=== PATIENT | female | born 1995 | race Caucasian/White ===

== ENCOUNTER 2021-08-11 16:02 | Emergency (ER) | payer OTHER, MEDICAID, SELFPAY ==
[2021-08-11 16:15] VITALS: BP 142/88; PULSE 67; RESP 16; TEMP 36.7; O2SAT 100
--- NOTE | 2021-08-11 17:07 | ED.RECABL ---
HPI - Recheck/Abnormal Lab/Rx <Jae Leary PA-C - Last Filed: 08/11/21 19:26> General Chief Complaint: Recheck/Abnormal Lab/Rx Stated Complaint: sent by [facility] , unable to open jaw Time Seen by Provider: 08/11/21 16:37 Source: patient Mode of arrival: Ambulatory History of Present Illness HPI narrative: Patient is a 25-year-old female presenting to the emergency department today for an evaluation jaw pain. Patient states that she awoke this morning with pain on the right side of her jaw and difficulty opening her mouth. She states that she has experienced similar episodes in the past that have resolved on their own, but she notes that today's episode has lasted longer than previous episodes. She reports associated bilateral ear pain that she has experienced for ?a few years?. She denies fever, chills, chest pain, cough, shortness of breath, nausea, vomiting, diarrhea, abdominal pain, dysuria, hematuria, or any other concerning symptoms. Patient states that prior episodes of jaw pain have resolved on their own. No other concerns were voiced at this time. Related Data Home Medications Medication Instructions Recorded Confirmed No Known Home Medications 08/17/18 08/17/18 Allergies Allergy/AdvReac Type Severity Reaction Status Date / Time No Known Drug Allergies Allergy Verified 08/17/18 15:21 Review of Systems <Jae Leary PA-C - Last Filed: 08/11/21 19:26> Constitutional Constitutional: Denies chills, Denies fatigue, Denies fever(s), Denies frequent falls, Denies lethargy and Denies weakness Eyes Eyes: Denies loss of vision ENT Ears, Nose, Mouth, and Throat: Denies change in voice, Denies dizziness, Denies neck pain, Denies sore throat, Denies throat swelling and Reports other (Right jaw pain, difficulty opening mouth) Cardiovascular Cardiovascular: Denies chest pain, Denies irregular heart rhythm, Denies lightheadedness, Denies palpitations, Denies dyspnea, Denies dyspnea on exertion and Denies orthopnea Respiratory Respiratory: Denies cough, Denies dyspnea, Denies dyspnea on exertion and Denies wheezing Gastrointestinal Gastrointestinal: Denies abdominal pain, Denies change in bowel habits, Denies diarrhea, Denies nausea and Denies vomiting Genitourinary Genitourinary: Denies hematuria, Denies flank pain, Denies urinary incontinence and Denies urinary urgency Musculoskeletal Musculoskeletal: Denies back pain, Denies muscle weakness, Denies neck pain, Denies numbness and Denies tingling Integumentary/Breasts Skin/Breast: Denies pruritus, Denies erythema, Denies rash and Denies wounds Neurologic Neurologic: Denies behavioral changes, Denies confusion, Denies dizziness, Denies frequent falls, Denies loss of vision, Denies numbness, Denies tingling and Denies weakness Psychiatric Psychiatric: Denies behavioral changes and Denies confusion Endocrine Endocrine: Denies fatigue and Denies palpitations Allergic/Immunologic Allergic/Immunologic: Denies throat swelling and Denies wheezing Patient History <Jae Leary PA-C - Last Filed: 08/11/21 19:26> Social History Smoking Status: Never smoker Smoking Status: Never smoker Exam <Jae Leary PA-C - Last Filed: 08/11/21 19:26> Narrative Exam Narrative: GENERAL: 25 year old patient appears stated age. Well-developed patient, in mild distress. HEAD: Atraumatic. Normocephalic. EYES: Pupils equal round and reactive. Extraocular motions intact. No scleral icterus. No injection or drainage. ENT: Nose without bleeding, purulent drainage. Limited ability to open the mouth. Tenderness to palpation appreciated along the right side of the jaw without appreciable swelling, warmth, or crepitus. NECK: Trachea midline. Non tender CARDIOVASCULAR: Regular rate and rhythm without murmurs, gallops, or rubs. RESPIRATORY: Clear to auscultation. Breath sounds equal bilaterally. No wheezes, rales, or rhonchi. GASTROINTESTINAL: Abdomen soft, non-tender, nondistended. EXTREMITIES: No edema or joint tenderness. BACK: Nontender without deformity or crepitance. No flank tenderness. NEURO: AOx3. SKIN: No rash or erythema of visible areas Initial Vital Signs Initial Vital Signs: Vital Signs Temperature 98.0 F 08/11/21 16:15 Pulse Rate 67 08/11/21 16:15 Respiratory Rate 16 08/11/21 16:15 Blood Pressure 142/88 H 08/11/21 16:15 Pulse Oximetry 100 08/11/21 16:15 <Monalisa Kong MD - Last Filed: 08/18/21 07:35> Initial Vital Signs Initial Vital Signs: Vital Signs Temperature 98.0 F 08/11/21 16:15 Pulse Rate 67 08/11/21 16:15 Respiratory Rate 16 08/11/21 16:15 Blood Pressure 142/88 H 08/11/21 16:15 Pulse Oximetry 100 08/11/21 16:15 Course <Jae Leary PA-C - Last Filed: 08/11/21 19:26> Course Course Narrative: 50 mg of IM Toradol, 5 mg of PO cyclobenzaprine administered. Demonstrated dry exercises to patient to help alleviate pain. Orders Ordered: Discontinued Medications Cyclobenzaprine HCl (Cyclobenzaprine 10 Mg Tablet) 5 mg PO NOW ONE Stop: 08/11/21 17:08 Last Admin: 08/11/21 17:13 Dose: 5 mg Documented by: VELMA Cyclobenzaprine HCl (Cyclobenzaprine 10 Mg Tablet) 5 mg PO NOW ONE Stop: 08/11/21 17:59 Last Admin: 08/11/21 18:15 Dose: 5 mg Documented by: HUMERA Ketorolac Tromethamine (Ketorolac 30 Mg/Ml Vial) 15 mg IM NOW ONE Stop: 08/11/21 17:08 Last Admin: 08/11/21 17:14 Dose: 15 mg Documented by: VELMA Vital Signs Vital signs: Vital Signs - 8 hr 08/11/21 16:15 Temperature 98.0 F Pulse Rate 67 Respiratory Rate 16 Blood Pressure 142/88 H Pulse Oximetry 100 <Monalisa Kong MD - Last Filed: 08/18/21 07:35> Orders Ordered: Discontinued Medications Cyclobenzaprine HCl (Cyclobenzaprine 10 Mg Tablet) 5 mg PO NOW ONE Stop: 08/11/21 17:08 Last Admin: 08/11/21 17:13 Dose: 5 mg Documented by: VELMA Cyclobenzaprine HCl (Cyclobenzaprine 10 Mg Tablet) 5 mg PO NOW ONE Stop: 08/11/21 17:59 Last Admin: 08/11/21 18:15 Dose: 5 mg Documented by: HUMERA Ketorolac Tromethamine (Ketorolac 30 Mg/Ml Vial) 15 mg IM NOW ONE Stop: 08/11/21 17:08 Last Admin: 08/11/21 17:14 Dose: 15 mg Documented by: VELMA Vital Signs Vital signs: Vital Signs - 8 hr 08/11/21 16:15 Temperature 98.0 F Pulse Rate 67 Respiratory Rate 16 Blood Pressure 142/88 H Pulse Oximetry 100 MDM - Recheck/Abnormal Lab/Rx <Jae Leary PA-C - Last Filed: 08/11/21 19:26> [facility] Narrative Medical decision making narrative: To consider temporomandibular joint syndrome versus otitis externa versus otitis media versus strep pharyngitis versus viral pharyngitis versus dental caries versus dental abscess. Overall physical examination and history reassuring. Demonstrated jaw exercises at patient can do to help alleviate pain. Additionally, recommended the patient treat her pain with [id number] pain medications and icing of the painful area as needed. Patient agrees to plan and at this time feels comfortable being discharged home. Strict return precautions were discussed with the patient prior to discharge. Discharge Plan Departure Patient Disposition: Home Clinical Impression: Jaw pain Instructions: DI for Temporomandibular Disorder Activity Restrictions/Additional Instructions: *You have been diagnosed with jaw pain *What to do: *Please continue to take your regular medications as directed. [ ] New medication prescriptions sent to your pharmacy: [ ] [ ] New medication written as a paper prescription [X] No new medications given *Please follow up with your primary care provider in 2-3 days, call for an appointment. Let them know you were seen in the Emergency Department and that we ask that you be seen in follow up. We will electronically transmit a record of today's note if your PCP is in our system *If you do not have a primary care provider please contact the [facility] Resource line at [phone]. They will ask some questions about your medical history and help get you set up with a doctor in the community. *Return to Emergency Department if you should have any new, worsening or concerning symptoms, such as fever greater than 101 F, shaking chills, worsening pain, persistent vomiting or other bothersome symptoms. Prescriptions: No Action No Known Home Medications 0RF <Monalisa Kong MD - Last Filed: 08/18/21 07:35> Cosign ED Attending Candelariaature Attestation: I was immediately available in the department for consultation throughout this patient's visit. I agree with documentation as above. Monalisa Kong MD
[2021-08-11] MEDS: CYCLOBENZAPRINE 10 MG TABLET 5 MG PO ×2 (17:13→18:15)
[2021-08-11] MEDS: KETOROLAC 30 MG/ML VIAL 15 MG IM (17:14)
== END 2021-08-11 18:52 | disposition home or self-care (01) ==
PROVIDERS: Emergency Provider Physician Assistant
DX: R68.84 Jaw pain (principal)
CPT/HCPCS: 96372; 99283; J1885

== ENCOUNTER 2023-01-14 11:43 | Emergency (ER) | payer OTHER, MEDICAID, SELFPAY ==
[2023-01-14 11:51] VITALS: BP 120/80; PULSE 96; RESP 22; TEMP 37.2; O2SAT 97; BMI 25.9
[2023-01-14 12:25] LABS: Strep Grp A by PCR Rapid Negative (Negative)
[2023-01-14 12:53] LABS: Influenza A - CEPHEID Flu A NEGATIVE (NEGATIVE); Influenza B - CEPHEID Flu B NEGATIVE (NEGATIVE); Respiratory Syncytial Virus Negative (Negative)
--- NOTE | 2023-01-14 12:56 | ED_ITS ---
HPI - URI/Sore Throat <DONNY Barros - Last Filed: 01/14/23 13:39> General Chief Complaint: Upper Respiratory Symptoms Stated Complaint: sore throat/pain/nausea/feels cold Time Seen by Provider: 01/14/23 12:52 Source: patient Mode of arrival: Ambulatory History of Present Illness HPI Narrative: This is a 27-year-old female presents emergency department complaining of 2 days throat pain, lesions bathroom throat, swollen tonsils, fatigue, chills, feeling worsen having painful swallowing. She denies any shortness of breath, wheezing, cough, rhinorrhea, congestion, nausea vomiting. States that she does have chills, has not had a measured fever. Denies any allergies to medications. Related Data Previous Rx's Medication Instructions Recorded benzocaine 15 mg-menthol 3.6 mg 1 carlene mucous membrane Q2-4H PRN 01/14/23 lozenges (Cepacol Sore Throat sore throat #16 ea (benzocaine-menthol)) omeprazole 20 mg capsule,delayed 20 mg PO DAILY 2 weeks #14 caps 01/14/23 release Allergies Allergy/AdvReac Type Severity Reaction Status Date / Time No Known Drug Allergies Allergy Verified 08/17/18 15:21 Review of Systems <DONNY Barros - Last Filed: 01/14/23 13:39> Review of Systems ROS Unobtainable: All systems reviewed & are unremarkable except as noted in HPI and below Patient History <DONNY Barros - Last Filed: 01/14/23 13:39> Social History Smoking Status: Never smoker Smoking Status: Never smoker alcohol intake frequency: holidays/special occasions only Substance Use Type: does not use Exam <DONNY Barros - Last Filed: 01/14/23 13:39> Narrative Exam Narrative: Reviewed vitals signs and nursing notes. General: Pleasant, sitting upright, in no acute distress, well groomed, afebrile HEENT: symmetrical facial expressions, moist mucous membranes, neck is supple, mild anterior cervical lymphadenopathy, full range of motion nuchal rigidity, posterior pharynx is erythematous, bilateral tonsils with exudate Skin: brisk capillary refill, without rash or wound Neuro: clear speech and normal cognition, A&O x3, GCS 15, no focal motor or sensation deficits Initial Vital Signs Initial Vital Signs: Vital Signs Temperature 98.9 F 01/14/23 11:51 Pulse Rate 96 H 01/14/23 11:51 Respiratory Rate 22 01/14/23 11:51 Blood Pressure 120/80 01/14/23 11:51 Pulse Oximetry 97 01/14/23 11:51 Oxygen Delivery Method Room Air 01/14/23 11:51 <Alfonso Araujo DO - Last Filed: 01/15/23 07:18> Initial Vital Signs Initial Vital Signs: Vital Signs Temperature 98.9 F 01/14/23 11:51 Pulse Rate 96 H 01/14/23 11:51 Respiratory Rate 22 01/14/23 11:51 Blood Pressure 120/80 01/14/23 11:51 Pulse Oximetry 97 01/14/23 11:51 Oxygen Delivery Method Room Air 01/14/23 11:51 Course <DONNY Barros - Last Filed: 01/14/23 13:39> Orders Ordered: Discontinued Medications Dexamethasone (Dexamethasone 1 Mg Tablet) 10 mg 0.15 mg/kg (10 mg) PO NOW ONE Stop: 01/14/23 12:56 Last Admin: 01/14/23 13:07 Dose: Not Given Documented By: LIZZ Dexamethasone (Dexamethasone 10 Mg/Ml Vial) 10 mg PO NOW ONE Stop: 01/14/23 13:02 Last Admin: 01/14/23 13:05 Dose: 10 mg Documented By: LIZZ Ketorolac Tromethamine (Ketorolac 30 Mg/Ml Vial) 30 mg IM NOW ONE Stop: 01/14/23 12:56 Last Admin: 01/14/23 13:04 Dose: 30 mg Documented By: LIZZ Pantoprazole Sodium (Pantoprazole Dr 20 Mg Tablet) 20 mg PO NOW ONE Stop: 01/14/23 12:56 Last Admin: 01/14/23 13:05 Dose: 20 mg Documented By: LIZZ Penicillin G Benzathine (Penicillin G Benzathine 1,200,000 Unit/2 Ml Syringe) 1,200,000 unit IM NOW ONE Stop: 01/14/23 12:56 Last Admin: 01/14/23 13:06 Dose: 1,200,000 unit Documented By: KB Vital Signs Vital signs: Vital Signs - 8 hr 01/14/23 11:51 01/14/23 13:32 Temperature 98.9 F Pulse Rate 96 H 82 Respiratory Rate 22 20 Blood Pressure 120/80 109/72 Pulse Oximetry 97 100 Oxygen Delivery Method Room Air Room Air <Alfonso Araujo DO - Last Filed: 01/15/23 07:18> Orders Ordered: Discontinued Medications Dexamethasone (Dexamethasone 1 Mg Tablet) 10 mg 0.15 mg/kg (10 mg) PO NOW ONE Stop: 01/14/23 12:56 Last Admin: 01/14/23 13:07 Dose: Not Given Documented By: LIZZ Dexamethasone (Dexamethasone 10 Mg/Ml Vial) 10 mg PO NOW ONE Stop: 01/14/23 13:02 Last Admin: 01/14/23 13:05 Dose: 10 mg Documented By: LIZZ Ketorolac Tromethamine (Ketorolac 30 Mg/Ml Vial) 30 mg IM NOW ONE Stop: 01/14/23 12:56 Last Admin: 01/14/23 13:04 Dose: 30 mg Documented By: LIZZ Pantoprazole Sodium (Pantoprazole Dr 20 Mg Tablet) 20 mg PO NOW ONE Stop: 01/14/23 12:56 Last Admin: 01/14/23 13:05 Dose: 20 mg Documented By: LIZZ Penicillin G Benzathine (Penicillin G Benzathine 1,200,000 Unit/2 Ml Syringe) 1,200,000 unit IM NOW ONE Stop: 01/14/23 12:56 Last Admin: 01/14/23 13:06 Dose: 1,200,000 unit Documented By: LIZZ Vital Signs Vital signs: Vital Signs - 8 hr 01/14/23 11:51 01/14/23 13:32 Temperature 98.9 F Pulse Rate 96 H 82 Respiratory Rate 22 20 Blood Pressure 120/80 109/72 Pulse Oximetry 97 100 Oxygen Delivery Method Room Air Room Air MDM - URI/Sore Throat <DONNY Barros - Last Filed: 01/14/23 13:39> Lab Data Labs: Lab Results 01/14/23 Range/Units 12:00 SARS-CoV-2 (PCR) Negative (Negative) Influenza A (RT-PCR) Flu a negative (NEGATIVE) Influenza B (RT-PCR) Flu b negative (NEGATIVE) RSV (PCR) Negative (Negative) Group A Strep (PCR) Negative (Negative) MDM Narrative Medical decision making narrative: Chief Complaint: Sore throat, chills Primary historian: Patient Multiple etiologies for patient's complaint considered including, but not limited to: Bacterial pharyngitis, viral pharyngitis, acute viral process, 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 My interpretation of imaging: Course of care: Patient's rapid strep was negative, patient has posterior pharynx erythema, tonsillar exudate and anterior cervical nodes, no cough, shortness of breath. Will treat bacterial pharyngitis, she does not have a rash. Her symptoms were treated with Toradol, Decadron, and 1.2 million units of penicillin G IM. Patient tolerated this well, she was given Cepacol throat lozenges and omeprazole for discharge. Social considerations that may affect disposition: none Questions are addressed and there is agreement with the plan and for follow-up. I consulted with the ED attending physician Dr. Araujo as needed for higher level of care considerations and they were available for discussion and recommendations regarding plan of care and diagnostic testing. Patient is appropriate for outpatient management. #66: Appropriate Testing for Patients with Pharyngitis [x] The patient has acute pharyngitis/tonsillitis. The patient was prescribed antibiotics today and a strep test or culture was performed today or in the last 3 days. [ ] The patient has acute pharyngitis/tonsillitis and was prescribed antibiotics today. A strep test or culture was not performed because the patient meets one of the following: [ ] Patient received a competing diagnosis. The patient?s competing diagnosis is (e.g. acute otitis media, chronic sinusitis, cellulitis, etc.) [ ] Patient is currently on antibiotics or has been in the last 30 days. [ ] Patient had a competing comorbid condition within the last 12 months. The patient?s comorbid condition is [] (e.g., tuberculosis, neutropenia, cystic fibrosis, chronic bronchitis, pulmonary edema, respiratory failure, rheumatoid lung disease) <Alfonso Araujo, DO - Last Filed: 01/15/23 07:18> Lab Data Labs: Lab Results 01/14/23 Range/Units 12:00 SARS-CoV-2 (PCR) Negative (Negative) Influenza A (RT-PCR) Flu a negative (NEGATIVE) Influenza B (RT-PCR) Flu b negative (NEGATIVE) RSV (PCR) Negative (Negative) Group A Strep (PCR) Negative (Negative) Discharge Plan Departure Patient Disposition: Home Clinical Impression: Pharyngitis Qualifiers: Pharyngitis/tonsillitis etiology: streptococcus Qualified Code(s): J02.0 - Streptococcal pharyngitis Instructions: Strep Throat Activity Restrictions/Additional Instructions: *You have been diagnosed with sore throat, likely strep throat. The throat culture will grow over the next 2-3 days, you received treatment for strep throat today. If there is a different bacteria that grows off the culture, we will call you. Please use ibuprofen 600 mg every 6 hours as needed for pain, take omeprazole daily to help prevent ulcer of your stomach while taking anti- inflammatory medication after a steroid. This should help with the ulceration, you can also use Maalox and swish and swallow. I hope you feel better soon. *What to do: *Please continue to take your regular medications as directed. [x ] New medication prescriptions sent to your pharmacy: [facility]] [ ] New medication written as a paper prescription [ ] No new medications given *Please call and schedule follow up with your primary care provider in 2-3 days, at least for an update. Let them know you were seen in the Emergency Department for the above problem. We will electronically transmit a record of today's note if your PCP or specialist is in our system. *If you do not have a primary care provider please contact [phone] to establish care with one of the [facility] primary care providers. *Return to the Emergency Department for worsening symptoms, inability to keep liquids down, fever greater than 101F, chills, or other concerning symptom. Prescriptions: New omeprazole 20 mg capsule,delayed release(DR/EC) 20 mg PO DAILY 14 Days Qty: 14 0RF Cepacol Sore Throat (tavo-men) 15-3.6 mg lozenge 1 carlene mucous membrane Q2-4H PRN (Reason: sore throat) Qty: 16 0RF Stand Alone Forms: Patient Portal/API <Alfonso Araujo DO - Last Filed: 01/15/23 07:18> Cosign ED Attending Candelariaature Attestation: I was immediately available in the department for consultation. Documentation has been reviewed. I agree with assessment and plan.
[2023-01-14] MEDS: KETOROLAC 30 MG/ML VIAL IM (13:04)
[2023-01-14] MEDS: PANTOPRAZOLE DR 20 MG TABLET PO (13:05)
[2023-01-14] MEDS: DEXAMETHASONE 10 MG/ML VIAL PO (13:05)
[2023-01-14] MEDS: PENICILLIN G BENZATHINE 1,200,000 UNIT/2 ML SYRINGE 1200000 UNIT IM (13:06)
[2023-01-14 13:32] VITALS: BP 109/72; PULSE 82; RESP 20; O2SAT 100
[2023-01-14 13:38] LABS: COVID-19 CEPHEID 4-PLEX PCR Negative (Negative)
== END 2023-01-14 13:32 | disposition home or self-care (01) ==
PROVIDERS: Emergency Provider Nurse Practitioner Critical Care Medicine
DX: J02.0 Streptococcal pharyngitis (principal); Z20.822 Contact with and (suspected) exposure to COVID-19
CPT/HCPCS: 0241U; 87070; 87147; 87651; 96372; 99283; J0561; J1100; J1885

== ENCOUNTER 2023-02-02 10:06 | Emergency (ER) | payer OTHER, MEDICAID, SELFPAY ==
[2023-02-02] VITALS (19 sets, daily range): BP systolic 98–120; BP diastolic 54–71; PULSE 50–82; RESP 14–24; TEMP 36.8; O2SAT 97–99; BMI 26.5
[2023-02-02 10:29] LABS: Appearance Urine UA CLOUDY; Bilirubin Urine UA 2+ (NEGATIVE); Color Urine UA ORANGE; Glucose Urine UA NEGATIVE (Negative); Ketones Urine UA TRACE (NEGATIVE); Leukocyte Esterase Urine UA 1+ (NEGATIVE); Nitrite Urine UA POSITIVE (Negative); Occult Blood Urine UA TRACE-INTACT (Negative); Protein Urine UA NEGATIVE (Negative); Specific Gravity Urine UA >=1.030 (1.000-1.035)
--- NOTE | 2023-02-02 10:32 | DI.US.S_ITS ---
PROCEDURE: US ABDOMEN LIMITED INDICATIONS: RUQ tenderness, nausea, diarrhea TECHNIQUE: Real-time focused scanning was performed of the abdomen, with image documentation. COMPARISON: None. FINDINGS: Liver measures 16.3 cm. No visualized stones. Wall thickness measures 4 mm. It is noted patient is NPO. Common bile duct measures 5 mm. Visualized portions of the pancreas are unremarkable. No free fluid. IMPRESSION: Mildly thickened gallbladder wall suspected to be related to contraction from NPO status. No stones are identified. However, acalculous cholecystitis cannot be definitively excluded. Dictated by: Genesis Hussein M.D. on 02/02/2023 at 12:16 Approved by: Genesis Hussein M.D. on 02/02/2023 at 12:36
--- NOTE | 2023-02-02 10:33 | ED.ABDPAIN ---
HPI - Abdominal Pain <DONNY Barros - Last Filed: 02/02/23 15:13> General Chief Complaint: Abdominal Pain Stated Complaint: ABD upper pain Time Seen by Provider: 02/02/23 10:13 Source: patient Mode of arrival: Ambulatory History of Present Illness HPI narrative: This is a 27-year-old female presents to the emergency department with epigastric pain, nausea, loose stools, and states that she had a fever on 01/22/2023. She denies dysuria, urinary frequency or urgency, had pharyngitis in the end of December 2022 and was treated with antibiotics. States that she got better but then had a fever about 1 week ago with muscle aches and chills, she has not had these symptoms since. She denies taking any medications, denies lower abdominal pain, flank pain, rash headache, lightheadedness, or any upper respiratory symptoms. She denies history of abdominal surgery, states that she feels nauseated constantly. Has not had any vomiting. Denies abnormal vaginal discharge. Denies any relation of her pain to food, states there are no alleviating factors. Related Data Previous Rx's Medication Instructions Recorded benzocaine 15 mg-menthol 3.6 mg 1 carlene mucous membrane Q2-4H PRN 01/14/23 lozenges (Cepacol Sore Throat sore throat #16 ea (benzocaine-menthol)) cephalexin 500 mg capsule 500 mg PO QID 5 days #20 caps 02/02/23 ciprofloxacin HCl 500 mg tablet 500 mg PO BID 7 days #14 tabs 02/02/23 metronidazole 500 mg tablet 500 mg PO TID 7 days #21 tabs 02/02/23 ondansetron 4 mg disintegrating 4 mg PO Q8H PRN nausea and 02/02/23 tablet vomiting #10 tabs Allergies Allergy/AdvReac Type Severity Reaction Status Date / Time No Known Drug Allergies Allergy Verified 02/02/23 10:21 Review of Systems <DONNY Barros - Last Filed: 02/02/23 15:13> Review of Systems ROS Unobtainable: All systems reviewed & are unremarkable except as noted in HPI and below Patient History <DONNY Barros - Last Filed: 02/02/23 15:13> Social History Smoking Status: Never smoker Smoking Status: Never smoker alcohol intake frequency: holidays/special occasions only Substance Use Type: does not use Exam <DONNY Barros - Last Filed: 02/02/23 15:13> Narrative Exam Narrative: Reviewed vitals signs and nursing notes. General: Pleasant, sitting upright, in no acute distress, well groomed, afebrile HEENT: symmetrical facial expressions, moist mucous membranes, neck is supple, no scleral icterus EOMI CV: regular rate and rhythm, warm extremities, no edema Respiratory: normal work of breathing, without tachypnea or hypoxia. GI: abdomen soft, nondistended, right upper quadrant tenderness with palpation, positive Ledbetter's sign, no other abdominal tenderness to palpation, without CVA tenderness bilaterally. MSK: moves all extremities, no weakness, normal tone, ambulatory without deficit Skin: brisk capillary refill, without rash or wound Neuro: clear speech and normal cognition, A&O x3, GCS 15, no focal motor or sensation deficits Initial Vital Signs Initial Vital Signs: Vital Signs Temperature 98.2 F 02/02/23 10:07 Pulse Rate 82 02/02/23 10:07 Respiratory Rate 15 02/02/23 10:07 Blood Pressure 119/70 02/02/23 10:07 Pulse Oximetry 97 02/02/23 10:07 Oxygen Delivery Method Room Air 02/02/23 10:07 <Doris Cash DO - Last Filed: 02/02/23 18:32> Initial Vital Signs Initial Vital Signs: Vital Signs Temperature 98.2 F 02/02/23 10:07 Pulse Rate 82 02/02/23 10:07 Respiratory Rate 15 02/02/23 10:07 Blood Pressure 119/70 02/02/23 10:07 Pulse Oximetry 97 02/02/23 10:07 Oxygen Delivery Method Room Air 02/02/23 10:07 Course <DONNY Barros - Last Filed: 02/02/23 15:13> Orders Ordered: ED Orders 02/02/23 10:18 Ictotest Urine Stat Urinalysis and Microscopic Stat Urine Culture Stat 02/02/23 10:32 US abdomen limited Stat 02/02/23 10:39 Complete Blood Count AUTO DIFF Stat Comprehensive Metabolic Panel Stat Lipase Stat 06/15/23 12:46 CT abdomen pelvis w con Stat Discontinued Medications Cephalexin HCl (Cephalexin 250 Mg Capsule) 500 mg PO NOW ONE Stop: 02/02/23 10:43 Last Admin: 02/02/23 10:48 Dose: 500 mg Documented By: LIZZ Sodium Chloride (Normal Saline 0.9%) 1,000 mls @ 1,000 mls/hr IV BOLUS ONE Stop: 02/02/23 12:12 Last Infusion: 02/02/23 12:32 Dose: 0 mls/hr Documented By: Admin: 02/02/23 11:19 Dose: 1,000 mls/hr Documented By: LIZZ Piperacillin Sod/Tazobactam (Sod 4.5 gm/ Sodium Chloride) 100 mls @ 200 mls/hr IV NOW ONE Stop: 02/02/23 12:35 Last Infusion: 02/02/23 13:15 Dose: 0 mls/hr Documented By: Admin: 02/02/23 12:42 Dose: 200 mls/hr Documented By: SUKH Ketorolac Tromethamine (Ketorolac 30 Mg/Ml Vial) 15 mg IV NOW ONE Stop: 02/02/23 11:14 Last Admin: 02/02/23 11:18 Dose: 15 mg Documented By: LIZZ Ondansetron HCl (Ondansetron 4 Mg/2 Ml Inj) 4 mg IV NOW PRN PRN Reason: Nausea And Vomiting Last Admin: 02/02/23 11:26 Dose: 4 mg Documented By: LIZZ Vital Signs Vital signs: Vital Signs - 8 hr 02/02/23 10:51 02/02/23 11:28 02/02/23 11:30 Pulse Rate 70 70 66 Respiratory Rate 18 22 19 Blood Pressure 120/68 Pulse Oximetry 97 99 98 Oxygen Delivery Method Room Air 02/02/23 12:00 02/02/23 12:10 02/02/23 12:10 Pulse Rate 66 54 L Respiratory Rate 18 21 Blood Pressure 109/70 100/58 L Pulse Oximetry 98 98 Oxygen Delivery Method 02/02/23 12:11 02/02/23 12:12 02/02/23 12:12 Pulse Rate 50 L 56 L Respiratory Rate 21 21 Blood Pressure 98/65 Pulse Oximetry 98 98 Oxygen Delivery Method 02/02/23 12:34 02/02/23 12:34 02/02/23 12:34 Pulse Rate 55 L 51 L Respiratory Rate 17 Blood Pressure 104/63 103/64 Pulse Oximetry 99 Oxygen Delivery Method 02/02/23 12:45 02/02/23 12:45 02/02/23 13:00 Pulse Rate 51 L Respiratory Rate 14 Blood Pressure 98/62 98/54 L Pulse Oximetry 99 Oxygen Delivery Method 02/02/23 13:00 02/02/23 13:26 02/02/23 13:26 Pulse Rate 50 L 60 Respiratory Rate 18 19 Blood Pressure 114/67 Pulse Oximetry 98 99 Oxygen Delivery Method 02/02/23 13:30 02/02/23 13:30 02/02/23 13:45 Pulse Rate 60 51 L Respiratory Rate 24 16 Blood Pressure 100/62 Pulse Oximetry 99 98 Oxygen Delivery Method 02/02/23 13:45 02/02/23 14:00 02/02/23 14:00 Pulse Rate 59 L Respiratory Rate 18 Blood Pressure 100/63 101/71 Pulse Oximetry 98 Oxygen Delivery Method 02/02/23 14:15 02/02/23 14:15 02/02/23 14:30 Pulse Rate 53 L 54 L Respiratory Rate 20 22 Blood Pressure 105/60 Pulse Oximetry 98 97 Oxygen Delivery Method 02/02/23 14:31 02/02/23 14:31 Pulse Rate 56 L Respiratory Rate 23 Blood Pressure 100/64 Pulse Oximetry 97 Oxygen Delivery Method Room Air <Doris Cash, - Last Filed: 02/02/23 18:32> Orders Ordered: ED Orders 02/02/23 10:18 Ictotest Urine Stat Urinalysis and Microscopic Stat Urine Culture Stat 02/02/23 10:32 US abdomen limited Stat 02/02/23 10:39 Complete Blood Count AUTO DIFF Stat Comprehensive Metabolic Panel Stat Lipase Stat 02/02/23 12:46 CT abdomen pelvis w con Stat Discontinued Medications Cephalexin HCl (Cephalexin 250 Mg Capsule) 500 mg PO NOW ONE Stop: 02/02/23 10:43 Last Admin: 02/02/23 10:48 Dose: 500 mg Documented By: LIZZ Sodium Chloride (Normal Saline 0.9%) 1,000 mls @ 1,000 mls/hr IV BOLUS ONE Stop: 02/02/23 12:12 Last Infusion: 02/02/23 12:32 Dose: 0 mls/hr Documented By: Admin: 02/02/23 11:19 Dose: 1,000 mls/hr Documented By: LIZZ Piperacillin Sod/Tazobactam (Sod 4.5 gm/ Sodium Chloride) 100 mls @ 200 mls/hr IV NOW ONE Stop: 02/02/23 12:35 Last Infusion: 02/02/23 13:15 Dose: 0 mls/hr Documented By: Admin: 02/02/23 12:42 Dose: 200 mls/hr Documented By: SUKH Ketorolac Tromethamine (Ketorolac 30 Mg/Ml Vial) 15 mg IV NOW ONE Stop: 02/02/23 11:14 Last Admin: 02/02/23 11:18 Dose: 15 mg Documented By: LIZZ Ondansetron HCl (Ondansetron 4 Mg/2 Ml Inj) 4 mg IV NOW PRN PRN Reason: Nausea And Vomiting Last Admin: 02/02/23 11:26 Dose: 4 mg Documented By: LIZZ Vital Signs Vital signs: Vital Signs - 8 hr 02/02/23 10:51 02/02/23 11:28 02/02/23 11:30 Pulse Rate 70 70 66 Respiratory Rate 18 22 19 Blood Pressure 120/68 Pulse Oximetry 97 99 98 Oxygen Delivery Method Room Air 02/02/23 12:00 02/02/23 12:10 02/02/23 12:10 Pulse Rate 66 54 L Respiratory Rate 18 21 Blood Pressure 109/70 100/58 L Pulse Oximetry 98 98 Oxygen Delivery Method 02/02/23 12:11 02/02/23 12:12 02/02/23 12:12 Pulse Rate 50 L 56 L Respiratory Rate 21 21 Blood Pressure 98/65 Pulse Oximetry 98 98 Oxygen Delivery Method 02/02/23 12:34 02/02/23 12:34 02/02/23 12:34 Pulse Rate 55 L 51 L Respiratory Rate 17 Blood Pressure 104/63 103/64 Pulse Oximetry 99 Oxygen Delivery Method 02/02/23 12:45 02/02/23 12:45 02/02/23 13:00 Pulse Rate 51 L Respiratory Rate 14 Blood Pressure 98/62 98/54 L Pulse Oximetry 99 Oxygen Delivery Method 02/02/23 13:00 02/02/23 13:26 02/02/23 13:26 Pulse Rate 50 L 60 Respiratory Rate 18 19 Blood Pressure 114/67 Pulse Oximetry 98 99 Oxygen Delivery Method 02/02/23 13:30 02/02/23 13:30 02/02/23 13:45 Pulse Rate 60 51 L Respiratory Rate 24 16 Blood Pressure 100/62 Pulse Oximetry 99 98 Oxygen Delivery Method 02/02/23 13:45 02/02/23 14:00 02/02/23 14:00 Pulse Rate 59 L Respiratory Rate 18 Blood Pressure 100/63 101/71 Pulse Oximetry 98 Oxygen Delivery Method 02/02/23 14:15 02/02/23 14:15 02/02/23 14:30 Pulse Rate 53 L 54 L Respiratory Rate 20 22 Blood Pressure 105/60 Pulse Oximetry 98 97 Oxygen Delivery Method 02/02/23 14:31 02/02/23 14:31 Pulse Rate 56 L Respiratory Rate 23 Blood Pressure 100/64 Pulse Oximetry 97 Oxygen Delivery Method Room Air MDM - Abdominal Pain <DONNY Barros - Last Filed: 02/02/23 15:13> Lab Data 02/02/23 10:39 02/02/23 10:39 Labs: Lab Results 02/02/23 02/02/23 02/02/23 Range/Units 10:18 10:39 10:39 WBC 10.3 (4.5-11.0) X10^3/uL RBC 4.66 (4.0-5.2) X10^6/uL Hgb 13.3 (12.0-16.0) g/dL Hct 40.3 (36-46) % MCV 86.5 (80-100) fL MCH 28.6 (26-34) PG MCHC 33.1 (30-36) % RDW 13.1 (11.6-14.8) % Plt Count 136 L (150-400) X10^3/uL Neut % (Auto) Not Reportable Lymph % (Auto) Not Reportable [place] % (Auto) Not Reportable Eos % (Auto) Not Reportable Baso % (Auto) Not Reportable Lymph # (Auto) Not Reportable [place] # (Auto) Not Reportable Baso # (Auto) Not Reportable Total Counted 100 Seg Neutrophils % 6.0 L (38-70) % Band Neutrophils % 4.0 (3-7) % Lymphocytes % (Manual) 79.0 H (25-45) % Atypical Lymphs % 3.0 H ( - 0) % Monocytes % (Manual) 3.0 (2-11) % Eosinophils % (Manual) 1.0 L (2-4) % Basophils % (Manual) 4.0 H (0-1) % Neutrophils # (Manual) 1030 L (6721-7700) /uL RBC Morphology Normal morphology Sodium 138 (137-145) mmol/L Potassium 3.8 (3.4-5.1) mmol/L Chloride 104 (98-107) mmol/L Carbon Dioxide 28 (22-32) mmol/L BUN 9 (7-17) mg/dL Creatinine 0.90 (0.52-1.04) mg/dL Estimated GFR > 60 (>60) mL/min BUN/Creatinine Ratio 10.0 (6-22) Glucose 110 H (70-100) mg/dL Calcium 9.1 (8.4-10.2) mg/dL Total Bilirubin 1.8 H (0.2-1.3) mg/dL AST 507 H (14-36) IU/L ALT 716 H (<35) IU/L Alkaline Phosphatase 428 H (38-126) U/L Total Protein 7.6 (6.3-8.2) g/dL Albumin 4.1 (3.5-5.0) g/dL Globulin 3.5 (1.7-4.1) g/dL Albumin/Globulin Ratio 1.2 (1.0-2.8) Lipase 64 (23-300) U/L Urine Color [place] Urine Appearance Cloudy Urine pH 5.0 (4.5-8.0) Ur Specific [place] >=1.030 H (1.000-1.035) Urine Protein Negative (Negative) Urine Glucose (UA) Negative (Negative) g/dL Urine Ketones Trace H (NEGATIVE) Urine Occult Blood Trace-intact (Negative) Urine Nitrate Positive H (Negative) Urine Bilirubin 2+ H (NEGATIVE) Ur Bilirubin Confirm Positive H (Negative) Urine Urobilinogen 2.0 H (0.2) E.U./dL Ur Leukocyte Esterase 1+ H (NEGATIVE) Urine RBC None seen (0-5/HPF) Urine WBC 1-5/hpf (0-5/HPF) Ur Squamous Epith Cells 0-1 /hpf (0-5/HPF) Amorphous Sediment 3+ Urine Bacteria Moderate (10-30) H (None) Ur Culture Indicated? Specimen cultured Point of care testing: Point of Care Testing Test Results Negative Imaging Data US - abdomen: Radiologist's Impression: Launch?Image [address] [address] Ultrasound Report Signed Patient: Bonita Melissa MR#: [id number] : 1995 Acct:[id number] Age/Sex: 27 / F Date of Service: 02/02/23 Loc: ED Accession Number: [id number] ?? Procedure: US abdomen limited Ordering Provider: Samreen Mcleod PROCEDURE: US ABDOMEN LIMITED ? INDICATIONS:? RUQ tenderness, nausea, diarrhea ? TECHNIQUE:? Real-time focused scanning was performed of the abdomen, with image documentation.? ? COMPARISON:? None. ? FINDINGS:? Liver measures 16.3 cm.? No visualized stones.? Wall thickness measures 4 mm.? It is noted patient is NPO.? Common bile duct measures 5 mm.? Visualized portions of the pancreas are unremarkable.? No free fluid. ? IMPRESSION:? Mildly thickened gallbladder wall suspected to be related to contraction from NPO status.? No stones are identified.? However, acalculous cholecystitis cannot be definitively excluded. ? ? Dictated by: Genesis Hussein M.D. on 02/02/2023 at 12:16 ? ? Approved by: Genesis Hussein M.D. on 02/02/2023 at 12:36 ? CT scan - abdomen/pelvis: Radiologist's Impression: [address] [address] [address] Scan Report Signed Patient: Bonita Melissa MR#: [id number] : 1995 Acct:[id number] Age/Sex: 27 / F Date of Service: 02/02/23 Loc: ED Accession Number: [id number] ?? Procedure: CT abdomen pelvis w con Ordering Provider: Samreen Mcleod PROCEDURE:? CT ABDOMEN PELVIS W CON ? INDICATIONS:? Cholecystitis? ? TECHNIQUE:? After the administration of intravenous contrast, axial sections acquired from the lung bases to the pubic symphysis.? Coronal and sagittal reformats were performed.? For radiation dose reduction, the following was used:? automated exposure control, adjustment of mA and/or kV according to patient size.? ? COMPARISON:? None. ? FINDINGS:? Image quality:? Excellent.? ? Lung bases:? Dependent atelectasis in posterior aspect of bilateral lung bases is seen. Heart:? No significant findings. ? ABDOMEN: Liver:? Hepatomegaly.? No discrete hepatic lesion.? Gallbladder:? Gallbladder is contracted .? No calcified gallstone is seen.? Suggestion of small amount of pericholecystic fluid is noted. Biliary ducts:? Unremarkable.? ? Pancreas:? Unremarkable.? ? Spleen:? There is splenomegaly, no discrete splenic lesion..? ? Adrenal Glands:? Unremarkable.? ? Kidneys and Ureters:? Unremarkable.? ? ? Stomach and Bowel:? There is no bowel obstruction or abnormal bowel wall thickening.? No mesenteric fat stranding.? No abscess collection.? Peritoneum:? No abnormal intraperitoneal fluid.? No free air.? ? Ventral Wall: ? No hernias.? Abdominal Nodes:? No retroperitoneal or mesenteric adenopathy by size criteria.? Vessels:? Aorta and inferior vena cava are normal in size.? ? PELVIS: Pelvic Organs:? Unremarkable.? ? Bladder:? Unremarkable.? ? Pelvic Nodes: No enlarged lymph nodes.? Miscellaneous: No hernias are seen. ? ? ? Bones:? No suspicious bony lesions.? No acute vertebral body compression fracture. ? ? IMPRESSION: ? 1. Contracted gallbladder.? No calcified gallstone is seen.? Questionable pericholecystic fluid.? Acalculous cholecystitis cannot be excluded.? No biliary ductal dilatation. ? 2. Hepatosplenomegaly. ? 3. No bowel obstruction.? No abnormal bowel wall thickening or mesenteric fat stranding.? No free fluid or free air.? No abscess collection.? ? Dictated by: Gamaliel Robin M.D. on 02/02/2023 at 14:05 ? ? Approved by: Gamaliel Robin M.D. on 02/02/2023 at 14:09 ? MDM Narrative Medical decision making narrative: Chief Complaint:nausea, upper abdominal pain Primary historian: patent Multiple etiologies for patient's complaint considered including, but not limited to: Cholecystitis, cholelithiasis, biliary colic, gastritis, gastric ulcer, GERD, urinary tract infection, colitis, acute viral process, I have independently reviewed the patient's vital signs and nursing notes as well as prior records if available. My interpretation of imaging: Abdominal ultrasound My interpretation of lab studies: Urine dip with nitrites, leukocyte esterase, ketones, bacteria and WBCs, urine culture is pending urine is negative. CBC shows mild thrombocytopenia with a platelet count of 136. Patient's CMP is significant for elevated liver enzymes grossly above normal with a total bilirubin of 1.8, AST of 507, ALT of 716, alkaline phosphatase of 428 Concern for cholecystitis, pending ultrasound, tech is doing another exam and yet. 1240 radiology report of ultrasound shows mildly thickened gallbladder wall measuring 4 mm common CBD is 5 mm, no pericholecystic fluid without visualized stones.. Radiology report states acalculous cholecystitis can not be definitely excluded. Consultations: Discussed case with Dr. Sanchez who is on-call for General surgery, she inquires if patient uses marijuana and patient states she does not use any marijuana at all, no substance abuse, since her presentation is more consistent with cholecystitis than the ultrasound she recommends CT abdomen pelvis for better visualization. If patient does not have any further findings, okay to follow-up in the clinic with oral antibiotics and strict return precautions. CT abdomen pelvis shows contracted gallbladder without gallstones, states questionable pericholecystic fluid and a calcaneus cholecystitis is not excluded. No biliary ductal dilatation. Since this is a fairly unremarkable scan and patient is afebrile, symptoms are mild, will treat with Cipro and Flagyl and have patient follow-up at [facility] for further evaluation. Social considerations that may affect disposition: none Questions are addressed and there is agreement with the plan and for follow-up. I consulted with the ED attending physician Dr. Cash as needed for higher level of care considerations and they were available for discussion and recommendations regarding plan of care and diagnostic testing. Patient is appropriate for outpatient management. <Doris Cash, DO - Last Filed: 02/02/23 18:32> Lab Data Labs: Lab Results 02/02/23 02/02/23 02/02/23 Range/Units 10:18 10:39 10:39 WBC 10.3 (4.5-11.0) X10^3/uL RBC 4.66 (4.0-5.2) X10^6/uL Hgb 13.3 (12.0-16.0) g/dL Hct 40.3 (36-46) % MCV 86.5 (80-100) fL MCH 28.6 (26-34) PG MCHC 33.1 (30-36) % RDW 13.1 (11.6-14.8) % Plt Count 136 L (150-400) X10^3/uL Neut % (Auto) Not Reportable Lymph % (Auto) Not Reportable [place] % (Auto) Not Reportable Eos % (Auto) Not Reportable Baso % (Auto) Not Reportable Lymph # (Auto) Not Reportable [place] # (Auto) Not Reportable Baso # (Auto) Not Reportable Total Counted 100 Seg Neutrophils % 6.0 L (38-70) % Band Neutrophils % 4.0 (3-7) % Lymphocytes % (Manual) 79.0 H (25-45) % Atypical Lymphs % 3.0 H ( - 0) % Monocytes % (Manual) 3.0 (2-11) % Eosinophils % (Manual) 1.0 L (2-4) % Basophils % (Manual) 4.0 H (0-1) % Neutrophils # (Manual) 1030 L (2077-3549) /uL RBC Morphology Normal morphology Sodium 138 (137-145) mmol/L Potassium 3.8 (3.4-5.1) mmol/L Chloride 104 (98-107) mmol/L Carbon Dioxide 28 (22-32) mmol/L BUN 9 (7-17) mg/dL Creatinine 0.90 (0.52-1.04) mg/dL Estimated GFR > 60 (>60) mL/min BUN/Creatinine Ratio 10.0 (6-22) Glucose 110 H (70-100) mg/dL Calcium 9.1 (8.4-10.2) mg/dL Total Bilirubin 1.8 H (0.2-1.3) mg/dL AST 507 H (14-36) IU/L ALT 716 H (<35) IU/L Alkaline Phosphatase 428 H (38-126) U/L Total Protein 7.6 (6.3-8.2) g/dL Albumin 4.1 (3.5-5.0) g/dL Globulin 3.5 (1.7-4.1) g/dL Albumin/Globulin Ratio 1.2 (1.0-2.8) Lipase 64 (23-300) U/L Urine Color [place] Urine Appearance Cloudy Urine pH 5.0 (4.5-8.0) Ur Specific [place] >=1.030 H (1.000-1.035) Urine Protein Negative (Negative) Urine Glucose (UA) Negative (Negative) g/dL Urine Ketones Trace H (NEGATIVE) Urine Occult Blood Trace-intact (Negative) Urine Nitrate Positive H (Negative) Urine Bilirubin 2+ H (NEGATIVE) Ur Bilirubin Confirm Positive H (Negative) Urine Urobilinogen 2.0 H (0.2) E.U./dL Ur Leukocyte Esterase 1+ H (NEGATIVE) Urine RBC None seen (0-5/HPF) Urine WBC 1-5/hpf (0-5/HPF) Ur Squamous Epith Cells 0-1 /hpf (0-5/HPF) Amorphous Sediment 3+ Urine Bacteria Moderate (10-30) H (None) Ur Culture Indicated? Specimen cultured Point of care testing: Point of Care Testing Test Results Negative Discharge Plan Departure Patient Disposition: Home Clinical Impression: Elevated liver enzymes Urinary tract infection Qualifiers: Urinary tract infection type: site unspecified Hematuria presence: without hematuria Qualified Code(s): N39.0 - Urinary tract infection, site not specified Abdominal pain Qualifiers: Abdominal location: right upper quadrant Qualified Code(s): R10.11 - Right upper quadrant pain Instructions: Urinary Tract Infection, Fat-Restricted Diet, DI for Cholecystitis Activity Restrictions/Additional Instructions: *You have been diagnosed with a urinary tract infection. Please follow-up as needed if you have any changes after antibiotic is complete. We will call you if we need to make any changes to your antibiotic. Please stay hydrated and drink plenty of water. Use Zofran as needed for nausea. The CT does not show a grossly thickened wall to suggest cholecystitis but it is mildly inflamed, no other signs to suggest that this is a surgical emergency. Please avoid any fatty foods for the next 2-3 days. Follow clear liquid diet for the next 1-2 days until you start feeling better and then add in proteins as tolerated but keep the fat content very low. Please follow-up in the clinic, schedule an appointment Surgeons for like saying that you were seen in the emergency department with mild cholecystitis. Thank you for coming in today, please call to schedule your follow-up appointment today for early next week. Come back to the emergency department if you develop a fever, chills, worsening pain, or if you are unable to keep anything down. *What to do: *Please continue to take your regular medications as directed. [ x] New medication prescriptions sent to your pharmacy: [[facility] ] [ ] New medication written as a paper prescription [ ] No new medications given *Please call and schedule follow up with your primary care provider in 2-3 days, at least for an update. Let them know you were seen in the Emergency Department for the above problem. We will electronically transmit a record of today's note if your PCP or specialist is in our system. *If you do not have a primary care provider please contact [phone] to establish care with one of the [facility] primary care providers. *Return to the Emergency Department for worsening symptoms, inability to keep liquids down, fever greater than 101F, chills, or other concerning symptom. Prescriptions: New cephalexin 500 mg capsule 500 mg PO QID 5 Days Qty: 20 0RF ondansetron 4 mg tablet,disintegrating 4 mg PO Q8H PRN (Reason: nausea and vomiting) Qty: 10 0RF ciprofloxacin HCl 500 mg tablet 500 mg PO BID 7 Days Qty: 14 0RF metronidazole 500 mg tablet 500 mg PO TID 7 Days Qty: 21 0RF Rx Instructions: Avoid alcohol while taking this medication No Action Cepacol Sore Throat (tavo-men) 15-3.6 mg lozenge 1 carlene mucous membrane Q2-4H PRN (Reason: sore throat) Qty: 16 0RF Referrals: [facility] [Provider Group] Nelly Sanchez MD [Physician] - Miscellaneous,MD Bob [Primary Care Provider] - Stand Alone Forms: Patient Portal/API <Doris Cash, - Last Filed: 02/02/23 18:32> [facility]: I was immediately available in the department for consultation. Documentation has been reviewed. Case was discussed with myself. Reviewed recommendations from General surgery plan and choice of antibiotics.
[2023-02-02 10:39] LABS: Ictotest Urine Positive (Negative); RBC Urine None Seen (0-5/HPF)
[2023-02-02 10:40] LABS: Bacteria Urine Moderate (10-30); Culture Indicated Urine Specimen Cultured; Squamous Epithelial Cell Urine 0-1 /HPF (0-5/HPF); WBC Urine 1-5/HPF (0-5/HPF)
[2023-02-02 10:44] LABS: Amorphous Sediment Urine 3+
[2023-02-02] MEDS: cephALEXin 250 MG CAPSULE 500 MG PO (10:48)
[2023-02-02 11:04] LABS: Hematocrit 40.3 % (36-46); Hemoglobin 13.3 g/dL (12.0-16.0); Mean Corpuscular HGB Conc 33.1 % (30-36); Mean Corpuscular Hemoglobin 28.6 PG (26-34); Mean Corpuscular Volume 86.5 fL (80-100); Platelet Count 136 X10^3/uL (150-400); Red Blood Cell Count 4.66 X10^6/uL (4.0-5.2); Red Cell Distribution Width 13.1 % (11.6-14.8); White Blood Cell Count 10.3 X10^3/uL (4.5-11.0)
[2023-02-02 11:05] LABS: Add Manual Diff / Slide Review YES
[2023-02-02 11:09] LABS: Alanine Aminotransferase 716 IU/L (<35); Albumin 4.1 g/dL (3.5-5.0); Albumin Globulin Ratio 1.2 (1.0-2.8); Alkaline Phosphatase 428 U/L (38-126); Aspartate Aminotransferase 507 IU/L (14-36); Bilirubin Total 1.8 mg/dL (0.2-1.3); Blood Urea Nitrogen 9 mg/dL (7-17); Calcium 9.1 mg/dL (8.4-10.2); Carbon Dioxide 28 mmol/L (22-32); Chloride 104 mmol/L (98-107); Estimated Glomerular Filt Rate > 60 mL/min (>60); Globulin 3.5 g/dL (1.7-4.1); Glucose 110 mg/dL (70-100); HEMOLYSIS < 15 (0-50); Lipase 64 U/L (23-300); Potassium 3.8 mmol/L (3.4-5.1); Sodium 138 mmol/L (137-145); Total Protein 7.6 g/dL (6.3-8.2)
[2023-02-02] MEDS: KETOROLAC 30 MG/ML VIAL 15 MG IV (11:18)
[2023-02-02] MEDS: SODIUM CHLORIDE 0.9% 1,000 ML 1000 ML IV (11:19)
[2023-02-02] MEDS: ONDANSETRON 4 MG/2 ML INJ IV (11:26)
--- NOTE | 2023-02-02 11:28 | PC.NURSE ---
Pt nauseous, gave 4mg zofran.
[2023-02-02 11:40] LABS: Neutrophils Absolute Manual 1030 /uL (3000-5900); RBC Morphology Normal Morphology; Total Cells Counted 100
[2023-02-02] MEDS: PIPERACILLIN/TAZO 4.5 GM in SODIUM CHLORIDE 0.9% 100 ML IV (12:42)
--- NOTE | 2023-02-02 12:46 | DI.CT.S_ITS ---
PROCEDURE: CT ABDOMEN PELVIS W CON INDICATIONS: Cholecystitis? TECHNIQUE: After the administration of intravenous contrast, axial sections acquired from the lung bases to the pubic symphysis. Coronal and sagittal reformats were performed. For radiation dose reduction, the following was used: automated exposure control, adjustment of mA and/or kV according to patient size. COMPARISON: None. FINDINGS: Image quality: Excellent. Lung bases: Dependent atelectasis in posterior aspect of bilateral lung bases is seen. Heart: No significant findings. ABDOMEN: Liver: Hepatomegaly. No discrete hepatic lesion. Gallbladder: Gallbladder is contracted . No calcified gallstone is seen. Suggestion of small amount of pericholecystic fluid is noted. Biliary ducts: Unremarkable. Pancreas: Unremarkable. Spleen: There is splenomegaly, no discrete splenic lesion.. Adrenal Glands: Unremarkable. Kidneys and Ureters: Unremarkable. Stomach and Bowel: There is no bowel obstruction or abnormal bowel wall thickening. No mesenteric fat stranding. No abscess collection. Peritoneum: No abnormal intraperitoneal fluid. No free air. Ventral Wall: No hernias. Abdominal Nodes: No retroperitoneal or mesenteric adenopathy by size criteria. Vessels: Aorta and inferior vena cava are normal in size. PELVIS: Pelvic Organs: Unremarkable. Bladder: Unremarkable. Pelvic Nodes: No enlarged lymph nodes. Miscellaneous: No hernias are seen. Bones: No suspicious bony lesions. No acute vertebral body compression fracture. IMPRESSION: 1. Contracted gallbladder. No calcified gallstone is seen. Questionable pericholecystic fluid. Acalculous cholecystitis cannot be excluded. No biliary ductal dilatation. 2. Hepatosplenomegaly. 3. No bowel obstruction. No abnormal bowel wall thickening or mesenteric fat stranding. No free fluid or free air. No abscess collection. Dictated by: Gamaliel Robin M.D. on 02/02/2023 at 14:05 Approved by: Gamaliel Robin M.D. on 02/02/2023 at 14:09
== END 2023-02-02 14:37 | disposition home or self-care (01) ==
PROVIDERS: Emergency Medicine; Emergency Provider Nurse Practitioner Critical Care Medicine
DX: R10.11 Right upper quadrant pain (principal); N39.0 Urinary tract infection, site not specified; R74.8 Abnormal levels of other serum enzymes
CPT/HCPCS: 74177; 76705; 80053; 81001; 81025; 83690; 85007; 85025; 87086; 96361; 96365; 96375; 99284; J1885; J2405; J2543; Q9967

== ENCOUNTER 2023-02-11 12:20 | Emergency (ER) | payer OTHER, MEDICAID, SELFPAY ==
[2023-02-11 12:23] VITALS: BP 118/68; PULSE 105; RESP 18; TEMP 36.6; O2SAT 98; BMI 25.7
[2023-02-11 13:03] LABS: Strep Grp A by PCR Rapid Negative (Negative)
--- NOTE | 2023-02-11 13:54 | ED.ALLEREA ---
HPI - Allergic Reaction General Chief complaint: Allergic Reaction Stated complaint: hives for 48 hours, itchy Time Seen by Provider: 02/11/23 13:53 Source: patient Mode of arrival: Ambulatory History of Present Illness HPI narrative: This is a 27-year-old female with no reported medical issues who presents with hives for the past 48-72 hours. Patient states she just completed an antibiotic course with Flagyl, cephalexin and ciprofloxacin coli cystitis and UTI. She states with the very last dose she either develops symptoms within 12 or 24 hours with itchy rash that started in the back of her neck has progressed her face torso upper and lower extremities. Patient notes 1 or 2 small small spots of irritation in her mouth, no blistering, no other lesions. Patient denies any swelling of the lips mouth or tongue. No swelling of the airway. No cough, no shortness of breath, no nausea or vomiting, no diarrhea. She states symptoms have been present for about 48 hours it is itchy. Patient states no other known exposures. She has had hives once before but states they were bigger and more patchy these are little bit smaller. Patient states she does not normally take any medications daily. She denies prior surgeries. Denies tobacco, alcohol or illicit. Patient states symptoms have been persistent but not continuing to worsen. Related Data Previous Rx's Medication Instructions Recorded benzocaine 15 mg-menthol 3.6 mg 1 carlene mucous membrane Q2-4H PRN 01/14/23 lozenges (Cepacol Sore Throat sore throat #16 ea (benzocaine-menthol)) ondansetron 4 mg disintegrating 4 mg PO Q8H PRN nausea and 02/02/23 tablet vomiting #10 tabs prednisone 10 mg tablets in a dose See Rx Instructions PO .COMPLEX 02/11/23 pack #15 ea Allergies Allergy/AdvReac Type Severity Reaction Status Date / Time No Known Drug Allergies Allergy Verified 02/02/23 10:21 Review of Systems Review of Systems ROS Unobtainable: All systems reviewed & are unremarkable except as noted in HPI and below Patient History Social History Smoking Status: Never smoker Smoking Status: Never smoker alcohol intake frequency: holidays/special occasions only Substance Use Type: does not use Exam Narrative Exam Narrative: GEN: well nourished, well appearing female, alert and oriented x 3, patient appears to be in mild distress. HEENT: Atraumatic, pupils are equal round reactive to light, extraocular movements are intact, nares are clear, TMs are clear with no fluid, there is no conjunctival pallor. Throat is clear without any exudates, erythema, tonsillar enlargement or uvular deviation, no ulcerations or skin changes appreciated inside the mouth, no swelling of lips, tongue or airway. HEART: Regular rate and rhythm without murmur, clicks, rubs. LUNGS:Lungs clear to auscultation, no wheezes, rales, crackles, chest moves symmetrically ABD:bowel sounds normal, soft, non-tender, no guarding, rebound, rigidity, no masses noted, no hepatosplenomegaly :No CVA tenderness MSCL: Non-tender, no muscle atrophy, muscles strength 5/5 upper and lower extremities, full range of motion, normal gait NEURO:CN 2-12 intact, sensation normal SKIN: Patient has a erythematous papular rash of her face, neck and torso, no vesicles or blisters. She has 2 small spots on her right palm. None on her other feet. She appreciates to sores in the back of her mouth but I am not able to visualize them. Patient does not have any blistering, skin breakdown or other changes. Initial Vital Signs Initial Vital Signs: Vital Signs Temperature 98 F 02/11/23 12:23 Pulse Rate 105 H 02/11/23 12:23 Respiratory Rate 18 02/11/23 12:23 Blood Pressure 118/68 02/11/23 12:23 Pulse Oximetry 98 02/11/23 12:23 Oxygen Delivery Method Room Air 02/11/23 12:23 Course Orders Ordered: ED Orders 02/11/23 12:30 Strep Grp A by PCR Rapid Stat Throat Culture Stat Discontinued Medications Prednisone (Prednisone 20 Mg Tablet) 60 mg PO NOW ONE Stop: 02/11/23 14:06 Last Admin: 02/11/23 14:20 Dose: 60 mg Documented By: LIZZ Vital Signs Vital signs: Vital Signs - 8 hr 02/11/23 12:23 02/11/23 14:36 Temperature 98 F Pulse Rate 105 H 89 Respiratory Rate 18 18 Blood Pressure 118/68 120/70 Pulse Oximetry 98 99 Oxygen Delivery Method Room Air Room Air MDM - Allergic Reaction Lab Data Labs: Lab Results 02/11/23 Range/Units 12:30 Group A Strep (PCR) Negative (Negative) MDM Narrative Medical decision making narrative: This is a 27-year-old female who just completed approximately 10 day course of antibiotics and developed rash on the very last day or day afterwards. She does have 2 small lesions on the palms of her hands, she is been afebrile, she does not have any other clear allergic type symptoms it has been 2 or 3 days without improvement but not worsening. Discussed possibility of allergic response unknown which medication it would be that would be the source but [id number] was in differential as well as other potential causes a rash. Discussed strict return precautions, plan for steroids, Benadryl PRN and monitoring. Discharge Plan Departure Patient Disposition: Home Clinical Impression: Rash Instructions: DI for Adverse Drug Reaction -- Allergic Activity Restrictions/Additional Instructions: Your rash maybe reaction to the medications that you were on, I would recommend steroids, Benadryl as needed and see if this improves your symptoms. Take steroids once daily until gone. You may take Benadryl 1-2 tablets every 6 hours as needed for itching and rash. If needed you can also take Zyrtec or Claritin 1 tablet daily. Prescription for steroids sent to [facility] in [place]. Please return for fevers, if you are having new blistering or sloughing off skin, I feel rash continues to worsen, if you are having swelling of the lips, airway, shortness of breath, vomiting, diarrhea or other new or concerning changes. Prescriptions: New prednisone 10 mg tablets,dose pack See Rx Instructions .ROUTE .COMPLEX Qty: 15 0RF Rx Instructions: Take 50 mg p.o. x1 day, then 40 mg p.o. x1 day, 30 mg p.o. x1 day, then 20 mg p.o. x1 day then 10 mg p.o. x1 No Action ondansetron 4 mg tablet,disintegrating 4 mg PO Q8H PRN (Reason: nausea and vomiting) Qty: 10 0RF Cepacol Sore Throat (tavo-men) 15-3.6 mg lozenge 1 carlene mucous membrane Q2-4H PRN (Reason: sore throat) Qty: 16 0RF Referrals: Miscellaneous,Doctor, MD [Primary Care Provider] - Stand Alone Forms: Patient Portal/API
[2023-02-11] MEDS: predniSONE 20 MG TABLET 60 MG PO (14:20)
[2023-02-11 14:36] VITALS: BP 120/70; PULSE 89; RESP 18; O2SAT 99
== END 2023-02-11 14:37 | disposition home or self-care (01) ==
PROVIDERS: Emergency Provider Emergency Medicine
DX: R21 Rash and other nonspecific skin eruption (principal)
CPT/HCPCS: 87070; 87651; 99283

== ENCOUNTER 2025-07-10 06:30 | Day surgery (SDC) | payer OTHER, SELFPAY ==
--- NOTE | 2025-07-09 22:26 | PM.HP.1 ---
History of Present Illness History of Present Illness Chief complaint: L ankle/Achilles tendon Narrative: 29 year old female here for left ankle and right foot pain. The patient reports that her condition is currently the same as her last visit, and it was even worse for a while and couldn't walk, prompting the purchase of crutches which helped. The patient re-aggravated her injury in late March on a trip to [facility]. She had previously tried physical therapy once before but reported it didn't really help. The patient's goal is to return to dancing activities. She would like to proceed with surgical intervention, and family members are present due to patient's anxiety. Patient denies n/v/f/c/sob/cp. [facility] Medical History (Updated 07/02/25 @ 12:59 by Mayte Pérez RN) Anxiety and depression TMJ (temporomandibular joint disorder) Scoliosis Social History Smoking Status: Never smoker Meds Home Medications and Allergies Home Medications ?Medication ?Instructions ?Recorded ?Confirmed ?Type benzocaine 15 mg-menthol 3.6 mg 1 carlene mucous membrane Q2-4H PRN 01/14/23 Rx lozenges (Cepacol Sore Throat sore throat #16 ea (benzocaine-menthol)) ondansetron 4 mg disintegrating 4 mg PO Q8H PRN nausea and 02/02/23 Rx tablet vomiting #10 tabs fexofenadine 60 mg tablet (Jalyn 60 mg PO BID 07/02/25 07/02/25 History Allergy) hydroxyzine HCl 10 mg tablet 10 mg PO 3XD 07/02/25 07/02/25 History Allergies Allergy/AdvReac Type Severity Reaction Status Date / Time marijuana (cannabis) AdvReac Verified 07/02/25 12:56 Exam Extrem Other: Left lower extremity: Prominent bony eminence to posterior heel. Decreased ankle dorsiflexion with knees extended. Moderate pain on palpation to midsubstance Achilles tendon. 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 Left lower leg muscle contracture Patient seen and evaluated. Surgical plan: left calcaneal osteophyte resection, Achilles tendon debridement and secondary repair, and gastrocnemius recession. Risks and benefits of the procedure discussed with all questions answered to patient's satisfaction. Reviewed potential complications that may include but not limited to the following: DVT, failure to resolve all symptoms, infection, nerve injury, bleeding, recurrence, or wound. Reviewed surgical technique and general aftercare protocols. All questions answered to patient's satisfaction with no guarantees made. Patient verbalized understanding and agreed with surgical plan. RTC for post-op. Time-Based Coding :: [TOTAL MINUTES] spent with patient and on the chart (including review of chart, obtaining history, exam, reviewing outside data, placing orders, documenting exam and treatment plan, and counseling patient) on [DATE].
[2025-07-10] VITALS (9 sets, daily range): BP systolic 93–127; BP diastolic 56–89; PULSE 45–78; RESP 12–16; TEMP 36.1–36.9; O2SAT 98–100
[2025-07-10] MEDS: LACTATED RINGERS 1,000 ML 100 ML IV ×2 (07:31→09:38)
--- NOTE | 2025-07-10 07:35 | PM.PREOP ---
Pre-operative Note Interval Note History & Physical reviewed/Exam performed by Physician: Yes Changes to H&P: No
--- NOTE | 2025-07-10 08:23 | SUR.OPER ---
Prone on padded OR bed, head in foam head support, gel chest rolls, gel pad under knees, gel under lower non-operative leg, operative leg supported by blankets per surgeon, toes free of pressure, arms secured above head at <90 degrees abduction. Safety belt at thigh. Tape over blanket over non-operative leg.
[2025-07-10] MEDS: ACETAMINOPHEN IV 1,000 MG/100 ML VIAL 400 MG IV (11:34)
--- NOTE | 2025-07-11 08:02 | P.OP_ITS ---
Operative Date/Time/Diagnoses Date of procedure: 07/10/25 Time of procedure: 07:45 Pre-op diagnosis: 1. 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 Left lower leg muscle contracture Post-op diagnosis: same Procedure & Clinicians Procedure: 1. Left foot osteophyte removal 2. Left Achilles tendon debridement and secondary repair 3. Left gastrocnemius recession Same procedure(s) as scheduled: Yes Indications: Chronic pain that failed conservative treatments Surgeon: Dex Becerra Assisted?: No Anesthesia Type: General Operative Notes Findings: Consistent with diagnosis as dictated in procedure in detail Closure Type: primary Specimen(s): none sent Applied: implant(s) (Arthrex SpeedBridge) Estimated Blood Loss (mL): 5 Tourniquet time (min): 120 Procedure in detail: Patient was identified and brought into operating room via gurney and then transferred onto operating table. Regional block was administered in holding area. General anesthesia was administered in operating room. Patient was in prone position for the entire operation. Thigh tourniquet was applied over well- padded surface, which was inflated to 275 mmHg for a total of 120 minutes for the procedures. Left lower extremity was prepped and draped in usual sterile fashion followed by official timeout with surgical team all in agreement. Attention was directed to left posterior heel at the midsubstance portion of the Achilles tendon. A 5 cm linear incision was carried out using a #15 scalpel at the midline. Dissection was carried out in layers from skin down to level of the tendon, which was sharply reflected and detached from its insertion. Notable thickening and scant calcium deposits were identified along the Achilles tendon, which was respectively debulked, excised, and repaired using a #15 scalpel, a rongeur, and an 0 vicryl. Inflamed subcutaneous bursa and retrocalcaneal bursa were also identified and removed using a rongeur. Attention was then directed to the prominent bone at the insertion of the Achilles tendon. A sagittal saw on power was used to excise the hypertrophic bone formation from posterior aspect of calcaneus, which was then resurfaced with a rasp on power. Following manufacture instructions, four bone anchors from [employer]rex SpeedBridge were inserted, and sutures were passed through the Achilles tendon to create reattachment in crisscross double-row fashion. Surgical site was irrigated using copious saline and closed in layers using a 3-0 and 4-0 vicryls and 3-0 and 4-0 nylons. Attention was then directed to the lower leg. A 2.5 cm linear incision was made using # 15 scalpel medial to midline at surgical zone 3. Sharp and blunt dissection was carried out down to the level of tendon while care was taken to retract neurovascular structures. A transverse sectioning of the gastrocnemius aponeurosis was completed using # 15 scalpel with increased ankle dorsiflexion noted. Surgical site was irrigated using copious saline and closed using a 3-0 vicryl and a 4-0 nylon. Incision sites were washed and dried. Iodine soaked Adaptic were applied to all incision sites, followed by sterile dressing using gauze, abodminal pads, Kerlix, and cast padding. Posterior splint was molded using 5 inch OrthoGlass and secured with elastic bandage wraps. Patient tolerated procedures without complication and was transferred to PACU with all vital signs stable. Complications: none Post-operative Condition: stable Disposition: same day surgery Plan for aftercare: Non-weight bearing to surgical limb. Ice behind knee 15 minutes/hour. Elevate above heart. Keep dressing clean, dry, and intact.
== END 2025-07-10 13:01 | disposition home or self-care (01) ==
PROVIDERS: PCP Family Medicine; Referring Provider Podiatrist Foot & Ankle Surgery; Visit Provider Podiatrist Foot & Ankle Surgery
PROC: (CPT 27654; principal; 2025-07-10 07:45)
PROC: (CPT 27650; 2025-07-10 07:45)
DX: M25.775 Osteophyte, left foot (principal); M65.272 Calcific tendinitis, left ankle and foot; M62.462 Contracture of muscle, left lower leg; G89.18 Other acute postprocedural pain
CPT/HCPCS: 27654; 28118; 27687; 64450; C1713; J0131; J0689; J1100; J1885; J2250; J2405; J2704; J2795; J3010; J7120

== ENCOUNTER 2025-07-15 20:57 | Emergency (ER) | payer OTHER, SELFPAY ==
[2025-07-15 21:11] VITALS: BP 115/75; PULSE 71; RESP 18; TEMP 36.9; O2SAT 98; BMI 26.5
--- NOTE | 2025-07-15 22:02 | DI.US.S_ITS ---
PROCEDURE: US PERIPH VENOUS LOW EXTREM LT INDICATIONS: dvt TECHNIQUE: Real-time imaging, as well as color and pulse Doppler interrogation, were performed of the lower extremity deep veins from the inguinal ligament to the popliteal fossa, with documentation of the visualized calf veins. COMPARISON: None. FINDINGS: The common femoral, femoral, popliteal, and the visualized calf veins are normally compressible, and free of intraluminal thrombus. Color and pulse Doppler demonstrate normal phasic intraluminal flow. There is normal augmentation response to distal compression maneuver. IMPRESSION: No findings of lower extremity deep venous thrombosis. Dictated by: Genesis Hussein M.D. on 07/15/2025 at 23:14 Approved by: Genesis Hussein M.D. on 07/15/2025 at 23:15
--- NOTE | 2025-07-15 22:03 | ED_ITS ---
HPI - Extremity Problem <Alo Hannon MD - Last Filed: 07/15/25 22:06> General Chief complaint: Extremity Problem,Nontraumatic Stated complaint: post op Lt leg pain/injury Time Seen by Provider: 07/15/25 21:54 Source: patient Mode of arrival: Wheelchair History of Present Illness HPI Narrative: 34-year-old female who is status post podiatric surgery on her left ankle and foot by a Dr. Dex Becerra 5 days ago. Apparently had her Achilles tendon lengthening. She is complaining of pain in her left calf and ankle. States that it hurt and felt too tight after a dressing change yesterday. Today she says her ankle shifted a little bit in the splint she was wearing and she felt excruciating pain in her calf. She has continued to have excruciating pain since then. Also felt like her foot was numb and cold. Related Data Home Medications ?Medication ?Instructions ?Recorded ?Confirmed fexofenadine 60 mg tablet (Jalyn 60 mg PO BID 07/02/25 Allergy) hydroxyzine HCl 10 mg tablet 10 mg PO 3XD 07/02/2508/14 Previous Rx's ?Medication ?Instructions ?Recorded benzocaine 15 mg-menthol 3.6 mg 1 carlene mucous membrane Q2-4H PRN 01/14/23 lozenges (Cepacol Sore Throat sore throat #16 ea (benzocaine-menthol)) ondansetron 4 mg disintegrating 4 mg PO Q8H PRN nausea and 02/02/23 tablet vomiting #10 tabs ondansetron 8 mg disintegrating 8 mg PO Q12H PRN nause a and 07/10/25 tablet vomiting #30 tabs oxycodone-acetaminophen 5 mg-325 1 tab PO Q4-6H PRN po st-op pain 07/10/25 mg tablet (Endocet) #30 tabs Allergies Allergy/AdvReac Type Severity Reaction Status Date / Time marijuana (cannabis) AdvReac Verified 07/10/25 06:59 Patient History <Alo Hannon MD - Last Filed: 07/15/25 22:06> Medical History (Updated 07/16/25 @ 00:27 by Bo Gates MD) Anxiety and depression TMJ (temporomandibular joint disorder) Scoliosis Social History Smoking Status: Never smoker Smoking Status: Never smoker alcohol intake frequency: holidays/special occasions only Exam <Alo Hannon MD - Last Filed: 07/15/25 22:06> Narrative Exam Narrative: Appears uncomfortable. Alert and oriented. Left ankle has a splint on it, splint and wrap appeared to be intact. Splint was taken down. There is dressing was along the lower calf that appear to be intact this area is tender it is not warm. Posterior tibial and dorsalis pedis pulses are intact. She has a tech capillary refill light touch sensation in her toes. She has pain with any movement of her lower extremity. Initial Vital Signs Initial Vital Signs: Vital Signs Temperature 98.5 F 07/15/25 21:11 Pulse Rate 71 07/15/25 21:11 Respiratory Rate 18 07/15/25 21:11 Blood Pressure 115/75 07/15/25 21:11 Pulse Oximetry 98 07/15/25 21:11 Oxygen Delivery Method Room Air 07/15/25 21:11 <Bo Gates MD - Last Filed: 07/16/25 05:17> Initial Vital Signs Initial Vital Signs: Vital Signs Temperature 98.5 F 07/15/25 21:11 Pulse Rate 71 07/15/25 21:11 Respiratory Rate 18 07/15/25 21:11 Blood Pressure 115/75 07/15/25 21:11 Pulse Oximetry 98 07/15/25 21:11 Oxygen Delivery Method Room Air 07/15/25 21:11 Course <Alo Hannon MD - Last Filed: 07/15/25 22:06> Orders Ordered: ED Orders 07/15/25 22:02 US periph venous low extrem lt Stat 07/15/25 22:03 XR ankle LT min 3V Stat Discontinued Medications Oxycodone HCl (Oxycodone Ir 5 Mg Tablet) 10 mg PO NOW ONE Stop: 07/15/25 22:03 Last Admin: 07/15/25 22:25 Dose: 10 mg Documented By: WEST Vital Signs Vital signs: Vital Signs - 8 hr 07/16/25 00:44 Pulse Rate 70 Respiratory Rate 17 Blood Pressure 118/76 Pulse Oximetry 99 Oxygen Delivery Method Room Air <Bo Gates MD - Last Filed: 07/16/25 05:17> Orders Ordered: ED Orders 07/15/25 22:02 US periph venous low extrem lt Stat 07/15/25 22:03 XR ankle LT min 3V Stat Discontinued Medications Oxycodone HCl (Oxycodone Ir 5 Mg Tablet) 10 mg PO NOW ONE Stop: 07/15/25 22:03 Last Admin: 07/15/25 22:25 Dose: 10 mg Documented By: DKDrew Vital Signs Vital signs: Vital Signs - 8 hr 07/16/25 00:44 Pulse Rate 70 Respiratory Rate 17 Blood Pressure 118/76 Pulse Oximetry 99 Oxygen Delivery Method Room Air MDM - Extremity (Nontraumatic) <Bo Gates MD - Last Filed: 07/16/25 05:17> MDM Narrative Medical decision making narrative: 07/14/25, Kody Guthrie. Sign-out from Dr. Hannon. Left lower leg venous Doppler study report pending, x-ray left ankle x-ray report pending. 29-year-old female now postop day 5 from Achilles tendon lengthening procedure done by hazardous material technician, had Jorge wrapping postoperative, complaining of increasing left calf pain, some tingling to the foot. Jorge wrap removed by previous provider Dr. Hannon. Venous Doppler ordered, x-ray left ankle ordered. Radiology reports pending. Left ankle x-ray series. No fractures or dislocation. See radiology report. Venous Doppler left lower extremity. No DVT findings. See radiology report. Patient feels better after unwrapping Jorge wrap around postoperative short leg splint, underlying skin looks intact, well-healing scar, no obvious swelling or discharge or infection. Jorge reapplied with slightly less tight of a wrap, feels more comfortable, discharged home with family. Advised follow up with PCP in the next couple of days, consider also repeat check with Podiatry. Return precautions discussed. Discharge Plan Departure Patient Disposition: Home Clinical Impression: Post-operative pain Activity Restrictions/Additional Instructions: Recent Achilles tendon lengthening procedure 5 days ago, Jorge wrap splinting with use of knee scooter for mobility, awaiting follow up Podiatry evaluation. Calf pain today. No fever on triage, examination not suspicious for obvious skin infection, wound looks good. Ultrasound ordered, did not show evidence of blood clot at this time in the left lower extremity. X-ray ankle area without fract ure/dislocation changes. Jorge wrap was removed, a new Jorge wrap was put on that is not quite so tight, if that was the reason for you having discomfort. You were voicing plan to call the office of your hazardous material technician tomorrow morning, to see if your follow up appointment should be moved up. This sounds reasonable. Take Tylenol and or Motrin as needed for pain control. Recheck with your hazardous material technician as planned. Return to this/nearest emergency department for any change worsening symptoms or concerns prior. Prescriptions: No Action ondansetron 4 mg tablet,disintegrating 4 mg PO Q8H PRN (Reason: nausea and vomiting) Qty: 10 0RF hydroxyzine HCl 10 mg tablet 10 mg PO 3XD fexofenadine [Jalyn Allergy] 60 mg tablet 60 mg PO BID oxycodone-acetaminophen [Endocet] 5-325 mg tablet 1 tab PO Q4-6H PRN (Reason: post-op pain) Qty: 30 0RF ondansetron 8 mg tablet,disintegrating 8 mg PO Q12H PRN (Reason: nausea and vomiting) Qty: 30 0RF Cepacol Sore Throat (tavo-men) 15-3.6 mg lozenge 1 carlene mucous membrane Q2-4H PRN (Reason: sore throat) Qty: 16 0RF Referrals: Evangelina Prakash MD [Primary Care Provider, Medical] Stand Alone Forms: Patient Portal/API
--- NOTE | 2025-07-15 22:03 | DI.RAD.S_ITS ---
PROCEDURE: XR ANKLE LT MIN 3V INDICATIONS: ankle pain TECHNIQUE: 3 views of the ankle were acquired. COMPARISON: None. FINDINGS: Bones: No fractures or dislocations. Ankle mortise is normally aligned. No suspicious bony lesions. Soft tissues: No tibiotalar joint effusion. Achilles tendon appears normal. IMPRESSION: No visualized acute fracture or dislocation. However, if clinical concern and/or pain persist, short interval imaging followup in 7-10 days is recommended, as occult injury cannot be definitively excluded. Dictated by: Genesis Hussein M.D. on 07/15/2025 at 22:27 Approved by: Genesis Hussein M.D. on 07/15/2025 at 22:28
[2025-07-16 00:44] VITALS: BP 118/76; PULSE 70; RESP 17; O2SAT 99
== END 2025-07-16 00:45 | disposition home or self-care (01) ==
PROVIDERS: Emergency Provider Emergency Medicine; PCP Family Medicine
DX: M25.572 Pain in left ankle and joints of left foot (principal); M79.662 Pain in left lower leg; G89.18 Other acute postprocedural pain
CPT/HCPCS: 73610; 93971; 99283